=== PATIENT | female | born 1980 | race Caucasian/White ===

== ENCOUNTER → 2016-07-26 | Outpatient (CLI) | payer OTHER ==
--- NOTE | 2016-07-26 10:59 | US ---
Transabdominal and Endovaginal Pelvic Ultrasound Clinical History: 36-year-old female with pelvic pain, and a prior surgical history notable for a amol arean section. ICD 10 Diagnostic Code: R 10.2. TECHNIQUE: A curvilinear 5 MHz transducer was initially used to sonographically evaluate the pelvis, using a full urinary bladder as a window. To better assess the uterine architecture and the adnexal s tructures, endovaginal pelvic sonography was also performed. Color and spectral Doppler were used. Comparison Studies: Pelvic sonography, dated December 20, 2012, and obstetrical sonography, dated 10/31/14 .. Findings: Transabdominal Pelvic Sonography: The uterus is normal in size, shape, and position, measuring 9.7 x 3.6 x 5.3 cm. The visualized aspects of the urinary bladder are normal. The right and left ovaries a re normal. There is no free fluid. The resistive index associated with the right ovary 0.54, and with the left ovary is also 0.54. Endovaginal Pelvic Sonography: The endometrium is homogeneous and measures 9.5 mm. There is no unusua l 2.9 x 2.0 x 2.5 hyperemia. The right ovary measures 2.5 x 1.3 x 1.5 cm. The left ovary measures 2.9 x 2.0 x 2.5 cm. There are no cystic or solid adnexal masses identified. Normal arterial blood flow is documented to both ovaries by Doppler ultrasound. There is no free fluid in the pelvic cul-de-sac. Impression: Normal pelvic ultrasound.
== END ==
LOC: FIMAGING 09:30
PROVIDERS: ATTEND Obstetrics & Gynecology
DX: R10.2 Pelvic and perineal pain (principal)

== ENCOUNTER → 2017-08-03 | Outpatient (CLI) | payer OTHER | LOC: FIMAGING 08:20 | PROVIDERS: ATTEND Internal Medicine | DX: R10.2 Pelvic and perineal pain (principal) ==

== ENCOUNTER 2017-09-19 22:21 | Emergency (ER) | payer OTHER ==
[2017-09-19 22:31] VITALS: RESP 16; TEMP 98.1
[2017-09-19] MEDS ORDERED: LORazepam 1 MG TAB PO ONE (23:30)
--- NOTE | 2017-09-19 23:30 | EDPHY ---
H & P Stated Complaint: left eye blurred vision while working with computer - Personal History LMP (Females 10-55): 8-14 Days Ago Current Tetanus/Diphtheria Vaccine: Yes Current Tetanus Diphtheria and Acellular Pertussis (TDAP): Yes Tetanus Vaccine Date: 12/16/2014 - Medical/Surgical History Hx Asthma: No Hx Chronic Respiratory Disease: No Hx Diabetes: No Hx Cardiac Disease: No Hx Renal Disease: No Hx Cirrhosis: No Hx Alcoholism: No Hx HIV/AIDS: No Hx Splenectomy or Spleen Trauma: No Other PMH: Pre-eclampsia, ; History of anxiety and depression - Social History Smoking Status: Never smoked Time Seen by Provider: 09/19/17 22:44 HPI/ROS: Chief complaint: Left eye vision disturbance History of present illness: This is a 37-year-old female with no history of eye pathology who presents to the emergency department for left eye vision disturbance. Patient states this evening she was watching her iPad. She believes she started to lose her visual field on the left side of her left eye. She was having hard time seeing the left side of the screen. Vision started to return, she felt like she was looking through water. On my evaluation she states vision is return to normal. No associated pain with this. No headache. Review of systems: A 10 point review of systems was obtained and other than described above was negative. (Krunal Evans) - Physical Exam Exam: General Appearance: Alert, nontoxic. Eyes: Periorbital tissue unremarkable. No discharge. PERRLA. EOM intact. Visual monae grossly intact. Funduscopic grossly benign. Respiratory: Chest is non tender, lungs are clear to auscultation. Cardiac: regular rate and rhythm Musculoskeletal: Neck is supple and non tender. Extremities have full range of motion and are non tender. Skin: No rashes or lesions. (Krunal Evans) Constitutional: Initial Vital Signs Temperature (C) 36.7 C 09/19/17 22:29 Heart Rate 84 09/19/17 22:29 Respiratory Rate 16 09/19/17 22:29 Blood Pressure 158/103 H 09/19/17 22:29 O2 Sat (%) 97 09/19/17 22:29 O2 Delivery Mode Room Air Allergies/Adverse Reactions: No Known Allergies Allergy (Unverified 09/19/17 22:31) Home Medications: Medication Instructions Recorded LEVOTHYROXINE SODIUM [Tirosint 1 tab PO DAILY 10/03/12 50mcg] Cholecalciferol Vit D3 [Vitamin D3 1 tab PO DAILY 02/19/15 (*)] Ibuprofen [Motrin (*)] 600 mg PO Q6 PRN #60 tab 02/23/15 Sertraline HCl [Zoloft 50mg (*)] 50 mg PO DAILY 09/19/17 Medical Decision Making ED Course/Re-evaluation: Patient is seen in conjunction with my secondary supervising physician Dr. Adolfo Travis. Patient presents for a left eye visual disturbance. On my evaluation symptoms have resolved. She is otherwise healthy without significant physical exam findings, she has a nonfocal neurologic exam. Bedside orbital ultrasound was performed by Dr. Travis without significant findings. She is anxious, she is treated with Ativan. We will consult with on- call ophthalmology for follow-up. Care of patient is turned over to Dr. Travis pending discussion with Ophthalmology. (Krunal Evans) Differential Diagnosis: Included but not limited to ocular migraine, floaters, vitreous detachment, retinal detachment (Krunal Evans) - Data Points Medications Given: Discontinued Medications Lorazepam (Ativan) 1 mg PO EDNOW ONE Stop: 09/19/17 23:31 Last Admin: 09/19/17 23:33 Dose: 1 mg Departure - Departure Disposition: Home, Routine, Self-Care Clinical Impression: Vision disturbance Condition: Good Instructions: Blurred Vision (ED) Additional Instructions: Follow-up with Ophthalmology tomorrow for recheck If symptoms return or new symptoms develop return to the emergency room for recheck You should call Ophthalmology 8 o'clock in the morning for follow-up appointment. Referrals: Leisa Peterson MD [Primary Care Provider] - As per Instructions Ti Menjivar MD [Medical Doctor] - As per Instructions
[2017-09-20 00:10] VITALS: BP 141/91; PULSE 75; O2SAT 98
== END 2017-09-20 00:29 | disposition home or self-care (01) ==
DX: H53.9 Unspecified visual disturbance (principal)